=== PATIENT | female | born 1970 | race Hispanic/Latino ===

== ENCOUNTER 2022-12-29 22:55 | Emergency (ER) | payer OTHER ==
[~2022-12-29] VITALS: Ht 160 cm; Wt 65.3 kg
[2022-12-30 00:49] LABS: BASOPHILS % (AUTO) 0.4 % (0.0-5.0); EOSINOPHILS % (AUTO) 0.4 % (0.0-8.0); HEMATOCRIT 36.8 % (36-48); LYMPHOCYTES % (AUTO) 29.9 % (21.0-51.0); MEAN CORPUSCULAR HEMOGLOBIN 28.7 pg (27.0-33.0); MEAN CORPUSCULAR HGB CONC 32.3 g/dL (32.0-36.0); MEAN CORPUSCULAR VOLUME 88.9 fL (79-99); MONOCYTES % (AUTO) 6.1 % (3.0-13.0); NEUTROPHILS % (AUTO) 62.9 % (40.0-77.0); PLATELET COUNT (AUTO) 283 K/uL (130-400); RED BLOOD CELL COUNT(AUTO) 4.14 MIL/uL (4.00-5.50); RED CELL DISTRIBUTION WIDTH 13.7 % (11.0-15.5); WHITE BLOOD COUNT (AUTO) 10.7 K/uL (4.8-10.8)
[2022-12-30 00:55] LABS: CREATININE 0.8 mg/dL (0.5-1.5); POTASSIUM 3.4 mmol/L (3.5-5.1)
[2022-12-30 00:58] LABS: BILIRUBIN,URINE NEGATIVE (NEGATIVE); COLOR,URINE LIGHT-ORANGE (YELLOW); GLUCOSE, URINE (UA) NEGATIVE (NEGATIVE); KETONES,URINE 5 mg/dL (NEGATIVE); LEUKOCYTE ESTERASE ,URINE 500 Leu/uL (NEGATIVE); NITRATE,URINE NEGATIVE (NEGATIVE); OCCULT BLOOD,URINE LARGE (NEGATIVE); PH,URINE 5.5 (5.0-8.0); PROTEIN,URINE 50 mg/dL (NEGATIVE); UROBILINOGEN,URINE 0.2 mg/dL (0.2-1.0)
[2022-12-30 00:59] LABS: APPEARANCE,URINE CLOUDY (CLEAR)
[2022-12-30 01:00] LABS: TOTAL PROTEIN, SERUM 7.6 g/dL (6.0-8.3)
[2022-12-30] MEDS ORDERED: CEFTRIAXONE 1G VIAL IM ONE (01:00)
[2022-12-30] MEDS ORDERED: POTASSIUM BICARB/CIT AC 25 MEQ TABLET.EFF PO ONE (01:00)
[2022-12-30 01:03] LABS: BACTERIA,URINE FEW /HPF (None Seen); MUCUS,URINE RARE LPF (None Seen); RBC,URINE TNTC /HPF (0-1); WBC,URINE TNTC /HPF (0-1)
[2022-12-30] MEDS ORDERED: PHEN-847 PO (01:06)
[2022-12-30] MEDS ORDERED: NITR100C4 PO (01:06)
[2022-12-30] MEDS ORDERED: LIDOCAINE HCL 1% 20 ML VIAL ONE (01:23)
[2022-12-30 02:03] VITALS: BP 132/74
== END 2022-12-30 02:04 | disposition home or self-care (01) ==
LOC: EDH 22:55
DX: N39.0 Urinary tract infection, site not specified (principal); E87.6 Hypokalemia; Z90.710 Acquired absence of both cervix and uterus
CPT/HCPCS: 99283; 80053; 85025; 87077; 87088; 87186; 81001; 36415; 96372; J0696